=== PATIENT | female | born 2000 | race American Indian/Alaskan Native ===

== ENCOUNTER 2021-05-12 08:59 | Emergency (ER) | payer SELFPAY ==
[2021-05-12 09:21] VITALS: BP 138/86
--- NOTE | 2021-05-12 09:45 | Emergency Department Report ---
HPI - General Chief Complaint: Earache Time Seen by Provider: 05/12/21 09:38 - HPI HPI: 20-year-old -Citizen Of [place] female presents to the emergency department with a complaint of a 3-day history of bilateral ear pain and swelling, as well as subjective fever. She denies any headache, vision change, sore throat, neck pain. She has taken some Advil [id number] for her symptoms without any relief, but none this morning. No recent travel or sick contacts at home. She does not have a primary care physician. ED Past Medical Hx - Past Medical History Previous Medical History?: No - Surgical History Past Surgical History?: No - Social History Smoking Status: Never Smoker Substance Use Type: None - Medications Home Medications: Home Medications Medication Instructions Recorded Confirmed Last Taken Type guaiFENesin/CODEINE [Robitussin AC] 5 ml PO Q4-6H PRN #100 ml 08/04/13 Unknown Rx Cyclobenzaprine HCl [Flexeril 5 MG 5 mg PO TID #20 tab 04/06/15 Unknown Rx TAB] Ibuprofen [Motrin 800 MG tab] 800 mg PO TID PRN #20 tablet 04/06/15 Unknown Rx Neomy/Polymyx B/Hc (Otic) Soln 4 drops AU Q6H #1 bottle 05/12/21 Unknown Rx [Cortisporin (Otic) Soln] ED Review of Systems ROS: Stated complaint: EAR SWOLLEN Other details as noted in HPI Comment: All other systems reviewed and negative Constitutional: fever (subjective). denies: chills Eyes: denies: eye pain, vision change ENT: ear pain. denies: throat pain Respiratory: denies: cough, shortness of breath Cardiovascular: denies: chest pain, palpitations Gastrointestinal: denies: abdominal pain, vomiting Neurological: denies: headache, weakness Physical Exam - Physical Exam Vital Signs: Vital Signs 05/12/21 09:17 Temperature 98.1 F Pulse Rate 85 Respiratory 16 Rate Blood Pressure 138/86 [Left] O2 Sat by Pulse 95 Oximetry Physical Exam: GENERAL: The patient is well-developed well-nourished. HENT: Normocephalic. Atraumatic. Patient has moist mucous membranes. Severe bilateral external ear canal swelling with mild erythema. No discharge or drainage seen. Normal-appearing bilateral external ear canals from what is visualized through the external ear canal swelling. EYES: Extraocular motions are intact. NECK: Supple. Trachea is midline. CHEST/LUNGS: Clear to auscultation. There is no respiratory distress noted. HEART/CARDIOVASCULAR: Regular. There is no tachycardia. There is no murmur. SKIN: Skin is warm and dry. NEURO: The patient is awake, alert, and oriented. The patient is cooperative. Normal speech. MUSCULOSKELETAL: There is no tenderness or deformity. There is no limitation range of motion. ED Course Vital Signs 05/12/21 09:17 Temperature 98.1 F Pulse Rate 85 Respiratory 16 Rate Blood Pressure 138/86 [Left] O2 Sat by Pulse 95 Oximetry - Procedure Description Procedures done: Bilateral ear ruthie: An ear wick was placed in each external ear canal. 3 to 4 drops of Cortisporin otic were placed and there was expansion of the ear wick. No complications from this procedure. ED Medical Decision Making - Medical Decision Making This patient presents with severe bilateral otitis externa. He visualized portions of the tympanic membranes do not appear consistent with otitis media. Bilateral ear ruthie placed and then the patient was given Cortisporin otic. She will be discharged home with outpatient follow-up for primary care and otolaryngology. Critical Care Time: No Critical care attestation.: If time is entered above; I have spent that time in minutes in the direct care of this critically ill patient, excluding procedure time. ED Disposition Clinical Impression: Otitis externa of both ears Qualifiers: Otitis externa type: diffuse Chronicity: acute Qualified Code(s): H60.313 - Diffuse otitis externa, bilateral Disposition: 01 HOME / SELF CARE / HOMELESS Is pt being admited?: No Condition: Stable Instructions: Ear Drops, Adult, Otitis Externa Additional Instructions: Please follow-up with a primary care physician in the next few days. I have given you a referral for a local primary care physician, Dr. Cooper, and a primary care clinic, [facility]. I have given you a referral for a local drilling field operator (ENT), Dr Burton, to follow-up regarding your otitis externa (ear canal swelling and infection). Return to the emergency department with any worsening of your symptoms, new or concerning symptoms not addressed during this current emergency department visit, or with any acute distress. Prescriptions: Neomy/Polymyx B/Hc (Otic) Soln [Cortisporin (Otic) Soln] 4 drops AU Q6H #1 bottle Referrals: NIK COOPER MD [Staff Physician] - 2-3 Days ELIZABETH BURTON MD [Staff Physician] - 2-3 Days [facility] [Provider Group] - 2-3 Days Time of Disposition: 09:47
[2021-05-12] MEDS ORDERED: HYDROCORTISONE OU ONE (10:00)
[2021-05-12] MEDS ORDERED: POLYMYXIN B OU ONE (10:00)
[2021-05-12] MEDS ORDERED: NEOMYCIN OU ONE (10:00)
== END 2021-05-12 11:43 | disposition home or self-care (01) ==
LOC: ED 08:59
DX: H60.63 Unspecified chronic otitis externa, bilateral (principal); Z91.018 Allergy to other foods; Z79.899 Other long term (current) drug therapy
CPT/HCPCS: 99282

== ENCOUNTER 2021-06-08 08:00 | Emergency (ER) | payer SELFPAY ==
[2021-06-08 08:06] VITALS: BP 120/68
[2021-06-08] MEDS ORDERED: IBUPROFEN 800 MG TAB PO ONE (08:44)
[2021-06-08] MEDS ORDERED: CYCLOBENZAPRINE 10 MG TAB PO ONE (08:44)
[2021-06-08 09:24] LABS: Basophils % (Auto) 0.5 % (0.0-1.8); Eosinophils # (Auto) 0.1 K/mm3 (0.0-0.4); Eosinophils % (Auto) 2.8 % (0.0-4.3); Hematocrit 36.1 % (30.3-42.9); Hemoglobin 11.7 gm/dl (10.1-14.3); Lymphocytes # (Auto) 1.5 K/mm3 (1.2-5.4); Lymphocytes % (Auto) 37.5 % (13.4-35.0); Mean Corpuscular HGB Conc 33 % (30-34); Mean Corpuscular Volume 85 fl (79-97); Monocytes # (Auto) 0.3 K/mm3 (0.0-0.8); Monocytes % (Auto) 8.3 % (0.0-7.3); Platelet Count 201 K/mm3 (140-440); Red Blood Count 4.24 M/mm3 (3.65-5.03); Red Cell Distribution Width 14.9 % (13.2-15.2)
[2021-06-08 09:53] LABS: Alanine Aminotransferase 23 units/L (7-56); Blood Urea Nitrogen 10 mg/dL (7-17); Calcium 8.6 mg/dL (8.4-10.2); Hemolysis Index 7
[2021-06-08 10:05] LABS: BUN/Creatinine Ratio 14
--- NOTE | 2021-06-08 10:31 | Emergency Department Report ---
ED General Adult HPI - General Chief complaint: Pain General Stated complaint: BODY PAINS Time Seen by Provider: 06/08/21 08:40 Source: patient Mode of arrival: Ambulatory Limitations: No Limitations - History of Present Illness Initial comments: This is a 21-year-old female nontoxic, well nourished in appearance, no acute signs of distress presents to the ED with c/o of generalized muscle pain x2 weeks. 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 Patient otherwise denies any trauma or injuries. Patient denies any other complaints or symptoms. Patient denies any radiation of pain. Patient denies any chest pain, shortness of breath, fever, chills, nausea, vomiting, headache or stiff neck. Patient denies any urinary symptoms. Patient denies any allergies or significant past medical history. -: week(s) Radiation: non-radiation Severity scale (0 -10): 3 Quality: aching Consistency: intermittent Improves with: rest Worsens with: movement Associated Symptoms: denies other symptoms. denies: confusion, chest pain, cough, diaphoresis, fever/chills, headaches, loss of appetite, malaise, nausea/vomiting, rash, seizure, shortness of breath, syncope, weakness - Related Data Previous Rx's Medication Instructions Recorded Last Taken Type guaiFENesin/CODEINE [Robitussin AC] 5 ml PO Q4-6H PRN #100 ml 08/04/13 Unknown Rx Cyclobenzaprine HCl [Flexeril 5 MG 5 mg PO TID #20 tab 04/06/15 Unknown Rx TAB] Ibuprofen [Motrin 800 MG tab] 800 mg PO TID PRN #20 tablet 04/06/15 Unknown Rx Neomy/Polymyx B/Hc (Otic) Soln 4 drops AU Q6H #1 bottle 05/12/21 Unknown Rx [Cortisporin (Otic) Soln] Cyclobenzaprine [Flexeril] 10 mg PO QHS PRN #10 tablet 06/08/21 Unknown Rx Naproxen 500 mg PO Q12H PRN #12 tablet 06/08/21 Unknown Rx Allergies Allergy/AdvReac Type Severity Reaction Status Date / Time No Known Allergies Allergy Verified 06/08/21 08:06 ED Review of Systems ROS: Stated complaint: BODY PAINS Other details as noted in HPI Comment: All other systems reviewed and negative Constitutional: denies: chills, fever Eyes: denies: eye pain, eye discharge, vision change ENT: denies: ear pain, throat pain Respiratory: denies: cough, shortness of breath, wheezing Cardiovascular: denies: chest pain, palpitations Endocrine: no symptoms reported Gastrointestinal: denies: abdominal pain, nausea, diarrhea Genitourinary: denies: urgency, dysuria, discharge Musculoskeletal: arthralgia. denies: back pain, joint swelling Skin: denies: rash, lesions Neurological: denies: headache, weakness, paresthesias Psychiatric: denies: anxiety, depression Hematological/Lymphatic: denies: easy bleeding, easy bruising ED Past Medical Hx - Social History Smoking Status: Never Smoker Substance Use Type: None - Medications Home Medications: Home Medications Medication Instructions Recorded Confirmed Last Taken Type guaiFENesin/CODEINE [Robitussin AC] 5 ml PO Q4-6H PRN #100 ml 08/04/13 Unknown Rx Cyclobenzaprine HCl [Flexeril 5 MG 5 mg PO TID #20 tab 04/06/15 Unknown Rx TAB] Ibuprofen [Motrin 800 MG tab] 800 mg PO TID PRN #20 tablet 04/06/15 Unknown Rx Neomy/Polymyx B/Hc (Otic) Soln 4 drops AU Q6H #1 bottle 05/12/21 Unknown Rx [Cortisporin (Otic) Soln] Cyclobenzaprine [Flexeril] 10 mg PO QHS PRN #10 tablet 06/08/21 Unknown Rx Naproxen 500 mg PO Q12H PRN #12 tablet 06/08/21 Unknown Rx ED Physical Exam - General Limitations: No Limitations General appearance: alert, in no apparent distress - Head Head exam: Present: atraumatic, normocephalic - Eye Eye exam: Present: normal appearance - ENT ENT exam: Present: normal exam, normal orophraynx - Neck Neck exam: Present: normal inspection, full ROM. Absent: lymphadenopathy - Respiratory Respiratory exam: Present: normal lung sounds bilaterally. Absent: respiratory distress, wheezes, rales, rhonchi, stridor, chest wall tenderness, accessory muscle use, decreased breath sounds, prolonged expiratory - Cardiovascular Cardiovascular Exam: Present: regular rate, normal rhythm, normal heart sounds. Absent: bradycardia, tachycardia, irregular rhythm, systolic murmur, diastolic murmur, rubs, gallop - GI/Abdominal GI/Abdominal exam: Present: soft, normal bowel sounds. Absent: distended, tenderness, guarding, rebound, rigid, diminished bowel sounds - Extremities Exam Extremities exam: Present: normal inspection, full ROM, normal capillary refill. Absent: tenderness - Back Exam Back exam: Present: normal inspection, full ROM. Absent: tenderness, CVA tenderness (R), CVA tenderness (L), muscle spasm, paraspinal tenderness, vertebral tenderness, rash noted - Neurological Exam Neurological exam: Present: alert, oriented X3, normal gait - Psychiatric Psychiatric exam: Present: normal affect, normal mood - Skin Skin exam: Present: warm, dry, intact, normal color. Absent: rash ED Course Vital Signs 06/08/21 06/08/21 06/08/21 08:04 09:18 10:04 Temperature 99 F Pulse Rate 71 Respiratory 14 18 18 Rate Blood Pressure 120/68 [Left] O2 Sat by Pulse 99 98 Oximetry - Reevaluation(s) Reevaluation #1: 06/08/21 10:29 Patient is speaking in full sentences with no signs of distress noted. ED Medical Decision Making - Lab Data Result diagrams: 06/08/21 08:56 06/08/21 08:56 Lab Results 06/08/21 06/08/21 06/08/21 Range/Units 08:56 08:56 08:56 WBC 4.0 L (4.5-11.0) K/mm3 RBC 4.24 (3.65-5.03) M/mm3 Hgb 11.7 (10.1-14.3) gm/dl Hct 36.1 (30.3-42.9) % MCV 85 (79-97) fl MCH 28 (28-32) pg MCHC 33 (30-34) % RDW 14.9 (13.2-15.2) % Plt Count 201 (140-440) K/mm3 Lymph % (Auto) 37.5 H (13.4-35.0) % [place] % (Auto) 8.3 H (0.0-7.3) % Eos % (Auto) 2.8 (0.0-4.3) % Baso % (Auto) 0.5 (0.0-1.8) % Lymph # (Auto) 1.5 (1.2-5.4) K/mm3 [place] # (Auto) 0.3 (0.0-0.8) K/mm3 Eos # (Auto) 0.1 (0.0-0.4) K/mm3 Baso # (Auto) 0.0 (0.0-0.1) K/mm3 Seg Neutrophils % 50.9 (40.0-70.0) % Seg Neutrophils # 2.0 (1.8-7.7) K/mm3 Sodium 141 (137-145) mmol/L Potassium 4.4 (3.6-5.0) mmol/L Chloride 107.8 H (98-107) mmol/L Carbon Dioxide 23 (22-30) mmol/L Anion Gap 15 mmol/L BUN 10 (7-17) mg/dL Creatinine 0.7 (0.6-1.2) mg/dL Estimated GFR > 60 ml/min BUN/Creatinine Ratio 14 % Glucose 126 H (65-100) mg/dL Calcium 8.6 (8.4-10.2) mg/dL Total Bilirubin < 0.20 (0.1-1.2) mg/dL AST 22 (5-40) units/L ALT 23 (7-56) units/L Alkaline Phosphatase 74 (35-129) units/L Total Creatine Kinase 133 (30-135) units/L Total Protein 6.6 (6.3-8.2) g/dL Albumin 4.0 (3.9-5) g/dL Albumin/Globulin Ratio 1.5 % HCG, Qual Negative (Negative) - Medical Decision Making This is a 21-year-old female that presents with arthralgia. Patient is stable and was examined by me. Patient received Flexeril and Motrin for pain which stated symptoms improved and subsided. Patient is notified of the lab results with no questions noted by the patient. Patient stated family member will drive patient home after discharge due to possible drowsiness of Flexeril. Patient be discharged with naproxen and Flexeril. Physical exam otherwise is unremarkable. Patient was instructed to follow-up with a primary care doctor in 3-5 days or if symptoms worsen and continue return to emergency room as soon as possible. At time of discharge, the patient does not seem toxic or ill in appearance. No acute signs of distress noted. Patient agrees to discharge treatment plan of care. No further questions noted by the patient. Critical care attestation.: If time is entered above; I have spent that time in minutes in the direct care of this critically ill patient, excluding procedure time. ED Disposition Clinical Impression: Muscle strain Arthralgia Qualifiers: Joint pain location: unspecified Qualified Code(s): M25.50 - Pain in unspecified joint Disposition: HOME / SELF CARE / HOMELESS Is pt being admited?: No Does the pt Need Aspirin: No Condition: Stable Instructions: Cyclobenzaprine tablets, Muscle Strain, [id number], Joint Pain Additional Instructions: Follow-up with your primary care doctor in 3-5 days or if symptoms worsen such as bladder or bowel stability, chest pain, short of breath, numbness or tingling sensation in extremities, headache, dizziness, visual changes, nausea vomiting, or abdominal pain, return back to emergency room as was possible. Take naproxen and Flexeril as prescribed. Do not operate heavy machinery while taking Flexeril due to sedation Prescriptions: Cyclobenzaprine [Flexeril] 10 mg PO QHS PRN #10 tablet PRN Reason: Muscle Spasm Naproxen 500 mg PO Q12H PRN #12 tablet PRN Reason: Pain , Severe (7-10) Referrals: PRIMARY CARE, [Primary Care Provider] - 3-5 Days NIK EDUARDO MD [Staff Physician] - 3-5 Days Forms: Work/School Release Form(ED) Time of Disposition: 10:32
== END 2021-06-08 10:32 | disposition home or self-care (01) ==
LOC: ED 08:00
DX: T14.8XXA Other injury of unspecified body region, initial encounter (principal); M25.59 Pain in other specified joint; X50.0XXA Overexertion from strenuous movement or load, initial encounter; Y93.89 Activity, other specified; Y92.89 Other specified places as the place of occurrence of the external cause; Y99.8 Other external cause status
CPT/HCPCS: 36415; 80053; 82550; 84703; 85025; 99283